=== PATIENT | male | born 1950 | race Caucasian/White ===

== ENCOUNTER 2020-04-06 02:32 | Emergency (ER) | payer OTHER ==
[2020-04-06] MEDS ORDERED: LORAZEPAM 2 MG/ML 1 ML VIAL ONE (03:01)
== END 2020-04-06 03:27 | disposition home or self-care (01) ==
LOC: EDH 02:32
DX: F43.0 Acute stress reaction (principal); F41.1 Generalized anxiety disorder; I48.91 Unspecified atrial fibrillation; E78.00 Pure hypercholesterolemia, unspecified; Z87.891 Personal history of nicotine dependence; Z79.899 Other long term (current) drug therapy
CPT/HCPCS: 93005; 96372; 99283; J2060

== ENCOUNTER → 2021-07-26 | Outpatient (CLI) | payer OTHER | END | disposition home or self-care (01) | LOC: RAH 10:12 | DX: R92.2 Inconclusive mammogram (principal); N64.4 Mastodynia | CPT/HCPCS: 77066 ==

== ENCOUNTER 2021-09-17 01:06 | Emergency (ER) | payer OTHER ==
[~2021-09-17] VITALS: Ht 177.8 cm; Wt 78.9 kg
[2021-09-17] MEDS ORDERED: 0.9%NACL 1000ML 1,000 ML IV ONE (02:00)
[2021-09-17 02:33] LABS: BASOPHILS % (AUTO) 0.5 % (0.0-5.0); EOSINOPHILS % (AUTO) 2.6 % (0.0-8.0); HEMATOCRIT 38.9 % (42-54); LYMPHOCYTES % (AUTO) 17.4 % (21.0-51.0); MEAN CORPUSCULAR HEMOGLOBIN 30.2 pg (27.0-33.0); MEAN CORPUSCULAR HGB CONC 32.4 g/dL (32.0-36.0); MEAN CORPUSCULAR VOLUME 93.3 fL (79-99); MONOCYTES % (AUTO) 7.8 % (3.0-13.0); NEUTROPHILS % (AUTO) 71.2 % (40.0-77.0); PLATELET COUNT (AUTO) 218 K/uL (130-400); RED BLOOD CELL COUNT(AUTO) 4.17 MIL/uL (4.50-6.20); RED CELL DISTRIBUTION WIDTH 14.7 % (11.0-15.5); WHITE BLOOD COUNT (AUTO) 7.6 K/uL (4.8-10.8)
[2021-09-17 02:47] LABS: POTASSIUM 4.4 mmol/L (3.5-5.1)
[2021-09-17] MEDS ORDERED: IOHEXOL 350 MG/ML 100ML INFUS..BTL IV ONE (02:56)
[2021-09-17 04:22] VITALS: BP 106/58
[2021-09-17] MEDS ORDERED: LORAZEPAM 2 MG/ML 1 ML VIAL IVP ONE (04:30)
[2021-09-17] MEDS ORDERED: HYDR50CA PO (04:40)
[2021-09-17] MEDS ORDERED: LORAZEPAM 2 MG/ML 1 ML VIAL ONE (04:43)
== END 2021-09-17 05:11 | disposition home or self-care (01) ==
LOC: EDH 01:06
DX: H93.A2 Pulsatile tinnitus, left ear (principal); I48.91 Unspecified atrial fibrillation; Z79.899 Other long term (current) drug therapy
CPT/HCPCS: 36415; 70496; 80048; 85025; 93005; 96361; 96374; 99285; J2060; Q9967

== ENCOUNTER 2023-12-17 06:30 | Day surgery (SDC) | payer OTHER ==
[2023-12-12 08:44] VITALS: BP 104/82; PULSE 89; RESP 17
[2023-12-12 08:53] LABS: BASOPHILS # (AUTO) 0.04 K/uL (0.00-0.20); BASOPHILS % (AUTO) 0.7 % (0.0-5.0); EOSINOPHILS # (AUTO) 0.18 K/uL (0.00-0.70); EOSINOPHILS % (AUTO) 3.2 % (0.0-8.0); HEMATOCRIT 40.2 % (42-54); IMMATURE GRANULOCYTE ABSOLUTE 0.04 K/uL (0-1); LYMPHOCYTES # (AUTO) 1.3 K/uL (1.0-4.8); LYMPHOCYTES % (AUTO) 23.2 % (21.0-51.0); MEAN CORPUSCULAR HEMOGLOBIN 30.1 pg (27.0-33.0); MEAN CORPUSCULAR HGB CONC 31.8 g/dL (32.0-36.0); MEAN CORPUSCULAR VOLUME 94.6 fL (79-99); MONOCYTES # (AUTO) 0.5 K/uL (0.1-1.0); MONOCYTES % (AUTO) 8.8 % (3.0-13.0); NEUTROPHILS # (AUTO) 3.5 K/uL (1.8-7.7); NEUTROPHILS % (AUTO) 63.4 % (40.0-77.0); PLATELET COUNT (AUTO) 259 K/uL (130-400); RED BLOOD CELL COUNT(AUTO) 4.25 MIL/uL (4.50-6.20); RED CELL DISTRIBUTION WIDTH 14.6 % (11.0-15.5); WHITE BLOOD COUNT (AUTO) 5.6 K/uL (4.8-10.8)
[2023-12-12 09:04] LABS: CREATININE 1.1 mg/dL (0.5-1.5); INR 2.18 (0.85-1.15); POTASSIUM 4.7 mmol/L (3.5-5.1)
[2023-12-12 09:06] LABS: PARTIAL THROMBOPLASTIN TIME 36.4 SEC (26.3-35.5)
[~2023-12-17] VITALS: Ht 177.8 cm; Wt 78.5 kg
[2023-12-17] VITALS (20 sets, daily range): BP systolic 104–128; BP diastolic 50–77; PULSE 59–125; RESP 15–19
[~2023-12-17 06:30] MED LIST: ALPR0.255 PO; CARV3.12 PO; CHOL-34 PO; DIGO125T71 PO; ENAL2.5T16 PO; LIDO700A30 TP; PRAV40TA3 PO; SERT-438 PO; TERA1CAP4 PO; VITAMIN B12 PO; WARF3TAB59 PO; WARF6TAB49 PO
[2023-12-17] MEDS ORDERED: ACETAMINOPHEN 1,000 MG/100 ML VIAL IV ONE (06:50)
[2023-12-17] MEDS ORDERED: PROPOFOL 10 MG/ML 20ML VIAL IV ONE (06:55)
[2023-12-17] MEDS ORDERED: ROCURONIUM BROMIDE 10MG/1ML 5ML VL ONE (06:55)
[2023-12-17] MEDS ORDERED: LIDOCAINE PF 100MG/5ML (2%) SYRINGE 5ML ONE (06:55)
[2023-12-17] MEDS ORDERED: FENTANYL CITRATE PF 50 MCG/1 ML 2ML VIAL ONE (06:56)
[2023-12-17] MEDS ORDERED: LACTATED RINGERS 1000ML 1,000 ML IV ONE (06:59)
[2023-12-17] MEDS ORDERED: CEFAZOLIN SODIUM 2 GM VIAL ONE (06:59)
[2023-12-17 07:11] LABS: INR 0.94 (0.85-1.15)
[2023-12-17 07:12] LABS: PARTIAL THROMBOPLASTIN TIME 26.1 SEC (26.3-35.5)
[2023-12-17] MEDS ORDERED: PHENYLEPHRINE HCL 10 MG/ML 1ML VIAL IV ONE (07:49)
[2023-12-17] MEDS ORDERED: DEXAMETHASONE SOD PHOSPHATE 10MG/ML 1ML VIAL ONE (07:57)
[2023-12-17] MEDS ORDERED: ONDANSETRON 4MG INJ ONE (07:57)
[2023-12-17] MEDS ORDERED: EPHEDRINE SULFATE 50 MG/ML AMPULE ONE (08:00)
[2023-12-17] MEDS ORDERED: NEOSTIGMINE METHYLSULFATE 1MG/ML IV ONE (08:25)
[2023-12-17] MEDS ORDERED: GLYCOPYRROLATE 0.2 MG/ML 5 ML VIAL ONE (08:25)
[2023-12-17] MEDS ORDERED: TRAM50TA4 PO (08:32)
[2023-12-17] MEDS ORDERED: GABA-529 PO (08:32)
[2023-12-17] MEDS ORDERED: METH-662 PO (08:32)
[2023-12-17] MEDS ORDERED: DOCU-116 PO (08:32)
[2023-12-17] MEDS ORDERED: TRAMADOL HCL 50 MG TABLET ONE (10:08)
[2023-12-17] MEDS ORDERED: KETOROLAC 30MG VIAL (30MG/ML) ONE (10:21)
== END 2023-12-17 11:17 | disposition home or self-care (01) ==
LOC: DAH 06:30
PROVIDERS: ATTEND Surgery
DX: K43.6 Other and unspecified ventral hernia with obstruction, without gangrene (principal); F41.9 Anxiety disorder, unspecified; F32.A Depression, unspecified; I48.91 Unspecified atrial fibrillation; Z79.01 Long term (current) use of anticoagulants; Z79.899 Other long term (current) drug therapy; Z98.890 Other specified postprocedural states; Z87.891 Personal history of nicotine dependence
CPT/HCPCS: 36415 ×2; 80048; 85025; 85730 ×2; 85610 ×2; 49594; A6260; A4663; J7030 ×2; J7120; J3010; J1100; J3490 ×3; J2001; J2704; J2405; J1885; J2710; J2371; J0690; C1769 ×2; A4649; A4930 ×2; A4215; A4223; A4222; A4221; A4600

== ENCOUNTER 2024-04-28 16:47 | Emergency (ER) | payer OTHER ==
[~2024-04-28] VITALS: Ht 177.8 cm; Wt 77.1 kg
[~2024-04-28 16:47] MED LIST changes: +DOCU-116 PO; -ENAL2.5T16 PO; +ENAL2.5T71 PO; +GABA-529 PO; +METH-662 PO; +TRAM50TA4 PO
[2024-04-28 17:13] VITALS: O2SAT 97
[2024-04-28 17:45] LABS: BASOPHILS # (AUTO) 0.04 K/uL (0.00-0.20); BASOPHILS % (AUTO) 0.5 % (0.0-5.0); EOSINOPHILS # (AUTO) 0.22 K/uL (0.00-0.70); EOSINOPHILS % (AUTO) 2.8 % (0.0-8.0); HEMATOCRIT 39.1 % (42-54); IMMATURE GRANULOCYTE ABSOLUTE 0.05 K/uL (0-1); LYMPHOCYTES # (AUTO) 1.9 K/uL (1.0-4.8); LYMPHOCYTES % (AUTO) 23.7 % (21.0-51.0); MEAN CORPUSCULAR HEMOGLOBIN 30.3 pg (27.0-33.0); MEAN CORPUSCULAR HGB CONC 32.7 g/dL (32.0-36.0); MEAN CORPUSCULAR VOLUME 92.7 fL (79-99); MONOCYTES # (AUTO) 0.8 K/uL (0.1-1.0); MONOCYTES % (AUTO) 10.4 % (3.0-13.0); NEUTROPHILS # (AUTO) 4.9 K/uL (1.8-7.7); PLATELET COUNT (AUTO) 224 K/uL (130-400); RED BLOOD CELL COUNT(AUTO) 4.22 MIL/uL (4.50-6.20); RED CELL DISTRIBUTION WIDTH 14.7 % (11.0-15.5); WHITE BLOOD COUNT (AUTO) 7.8 K/uL (4.8-10.8)
[2024-04-28 17:57] LABS: INR 2.1 (0.85-1.15); PROTHROMBIN TIME 23.5 SEC (9.6-11.6)
[2024-04-28 17:58] LABS: POTASSIUM 4.4 mmol/L (3.5-5.1)
[2024-04-28 17:59] LABS: PARTIAL THROMBOPLASTIN TIME 32.8 SEC (26.3-35.5)
[2024-04-28 18:03] LABS: ALBUMIN 3.2 g/dL (3.5-5.0); BILIRUBIN,TOTAL 0.3 mg/dL (0.2-1.0); MAGNESIUM 1.9 mg/dL (1.80-2.40); TOTAL PROTEIN, SERUM 6.3 g/dL (6.0-8.3)
[2024-04-28 19:19] VITALS: BP 123/64; PULSE 62; RESP 17
== END 2024-04-28 19:18 | disposition home or self-care (01) ==
LOC: EDH 16:52
DX: I48.91 Unspecified atrial fibrillation (principal); R53.1 Weakness
CPT/HCPCS: 36415; 80053; 83690; 83735; 84484; 85025; 85610; 85730; 93005